=== PATIENT | male | born 1985 | race Caucasian/White ===

== ENCOUNTER → 2024-03-31 08:13 | Outpatient (REF) | payer BC, SELFPAY ==
[2024-03-31 08:56] LABS: % Basophils 0.9 % (0-2); % Eosinophils 1.1 % (0-6); % Immature Granulocytes 0.4 % (0-0.5); % Lymphocytes 26.7 % (20.5-51.1); % Neutrophils 63.9 % (42.2-75.2); Absolute Basophils 0.1 10^3/uL (0-0.2); Absolute Eosinophils 0.1 10^3/uL (0-0.7); Absolute Monocytes 0.5 10^3/uL (0.1-0.6); Absolute Neutrophils 4.8 10^3/uL (1.4-6.5); Hemoglobin 14.3 g/dL (13.0-18.0); Mean Corp Hgb Conc. 34.9 g/dL (33.0-37.0); Mean Corpuscular Hgb 30.7 pg (27.0-31.0); Mean Platelet Volume 9.2 fL (7.4-10.4); Nucleated Red Blood Cells % 0 % (-); Platelet Count 256 10^3/uL (130-400); Red Blood Cell Count 4.66 10^6/uL (4.70-6.10); White Blood Cell Count 7.5 10^3/uL (4.8-10.8)
[2024-03-31 09:32] LABS: ALT (SGPT) 23 U/L (0-50); AST (SGOT) 24 U/L (17-59); Albumin 4.4 g/dl (3.5-5.0); Alkaline Phosphatase 73 U/L (38-126); Blood Urea Nitrogen 16 mg/dl (9-20); Calcium 9.6 mg/dl (8.4-10.2); Carbon Dioxide 24 mmol/L (22-30); Chloride 104 mmol/L (98-107); Glucose 108 mg/dl (70-99); Potassium 4.6 mmol/L (3.5-5.1); Sodium 139 mmol/L (135-145); Total Bilirubin 0.4 mg/dl (0.2-1.3); Total Protein 6.8 g/dl (6.3-8.2); eGFR > 60.00
[2024-03-31 09:39] LABS: Free T4 0.83 ng/dl (0.78-2.19); Luteinizing Hormone 2.88 mIU/ml (1.24-7.80); Prolactin 10.7 ng/ml (3.7-17.9)
[2024-03-31 09:53] LABS: TSH 1.38 uIU/ml (0.47-4.68)
[2024-03-31 09:56] LABS: Cortisol, Random 6.7 ug/dl
[2024-04-01 15:14] LABS: Adrenocorticotropic Hormone 35.7 pg/mL (7.2-63.3)
[2024-04-01 23:04] LABS: % Free Testosterone 2.2 % (1.6-2.9); Free Testosterone 69 pg/mL (47-244); Sex Hormone Binding Globulin 21 nmol/L (17-56); Total Testosterone 309 ng/dL (300-1080)
== END ==
LOC: REG 08:13
PROVIDERS: ATTENDING PHYSICIAN Internal Medicine Endocrinology, Diabetes & Metabolism; FAMILY PHYSICIAN Family Medicine
DX: E29.1 Testicular hypofunction (principal)
CPT/HCPCS: 36415; 80053; 82024; 82530; 82533; 83002; 84146; 84270; 84402; 84403; 84439; 84443; 85025